=== PATIENT | male | born 1955 | race Two or more races ===

== ENCOUNTER → 2024-09-11 | Outpatient (CLI) | payer MEDICARE, BC, SELFPAY ==
[2024-09-11 12:17] LABS: Collection Type, Urine Clean Catch; Squamous Epithelial Cell,Urine 0 /hpf (0-5)
[2024-09-11 12:32] LABS: Basophils % (Auto) 1 % (0-2.5); Eosinophils # (Auto) 0.2 Thou/mm3 (0.0-0.5); Eosinophils % (Auto) 3 % (0-10); Hematocrit 42.9 % (41.0-53.0); Hemoglobin 15.3 g/dL (13.5-16.0); Immature Granulocytes % (Auto) 1 % (0-0); Immature Granulocytes Auto 0.04 Thou/mm3 (0.00-0.00); Lymphocytes # (Auto) 2.5 Thou/mm3 (1.0-4.8); Lymphocytes % (Auto) 41 % (10-50); Mean Corpuscular HGB Conc 35.7 g/dl (31.0-37.0); Mean Corpuscular Hemoglobin 33.5 pg (25.0-35.0); Mean Corpuscular Volume 94 fL (80-100); Monocytes # (Auto) 0.8 Thou/mm3 (0.0-0.8); Monocytes % (Auto) 13 % (0-12); Neutrophils # (Auto) 2.5 Thou/mm3 (1.8-7.7); Neutrophils % (Auto) 42 % (37-80); Nucleated Red Blood Cell % 0 /100 WBC (0); Platelet Count 100 Thou/mm3 (140-440); RDW Standard Deviation 44.5 fL (35.1-43.9); Red Blood Count 4.57 Miln/mm3 (4.50-5.90)
[2024-09-11 12:34] LABS: Bilirubin,Urine Negative (Negative); Blood,Urine Negative (Negative); Clarity,Urine Clear (Clear/Hazy); Color,Urine Yellow (Lt Yel-Yel); Culture Indicated,Urine Not Indicated; Glucose, Urine Negative (Negative); Ketones,Urine Negative (Negative); Leukocyte Esterase,Urine Negative (Negative); Nitrite,Urine Negative (Negative); PH,Urine 5.5 (5.0-7.0); Protein,Urine Negative (Neg - Trace); RBC,Urine 5 /hpf (0-3); Specific Gravity,Urine 1.023 (1.001-1.035); WBC,Urine < 1 /hpf (0-5)
[2024-09-11 12:46] LABS: Prostate Specific Antigen 1.17 ng/mL (0-4.00)
[2024-09-11 12:48] LABS: Alanine Aminotransferase 54 U/L (10-49); Albumin/Globulin Ratio 1.5 (1.2-2.2); Alkaline Phosphatase 92 U/L (46-116); Anion Gap 6 (7-16); Aspartate Amino Transferase 51 U/L (0-34); BUN/Creatinine Ratio 17 Ratio (12-20); Bilirubin,Total 2.4 mg/dL (0.3-1.2); Blood Urea Nitrogen 15 mg/dL (9-23); Calcium 9.2 mg/dL (8.3-10.6); Calcium (Corrected) 9.2 mg/dL (8.5-10.1); Carbon Dioxide 25.3 mMol/L (20.0-31.0); Cardiac Risk Estimate 5.8 RATIO (4.0-6.7); Chloride 108 mMol/L (98-107); Cholesterol 180 mg/dL (132-200); Creatinine (Component) 0.9 mg/dL (0.6-1.3); Globulin 2.6 gm/dL (2.3-3.5); Glucose 104 mg/dL (74-106); HDL Cholesterol 31 mg/dL (40-60); LDL Cholesterol,Calculated 120 mg/dL (0-130); Osmolality,Calculated 278 (275-295); Potassium 4.3 mMol/L (3.4-5.1); Sodium 139 mMol/L (136-145); Total Protein 6.6 gm/dL (5.7-8.2); Triglycerides 143 mg/dL (30-150); eGFR > 60 See Note
[2024-09-11 12:50] LABS: Thyroid Stimulating Hormone 1.57 uIU/mL (0.55-4.78); Vitamin B12 950 pg/mL (211-911); Vitamin D 25 Hydroxy Total 27.1 ng/mL (7.3-40.2)
[2024-09-18 06:27] LABS: Testosterone, Free,Dialysis 41.1 pg/mL (35.0-155.0); Testosterone, Total, Dialysis 720 ng/dL (250-1100)
== END | disposition home or self-care (01) ==
PROVIDERS: PCP Physician Assistant; Referring Provider Physician Assistant; Visit Provider Physician Assistant
DX: I10 Essential (primary) hypertension (principal); E78.5 Hyperlipidemia, unspecified; E55.9 Vitamin D deficiency, unspecified; R53.83 Other fatigue
CPT/HCPCS: 36415; 80053; 80061; 81001; 82306; 82607; 84153; 84402; 84403; 84443; 85025

== ENCOUNTER 2025-01-28 06:35 | Day surgery (SDC) | payer MEDICARE, BC, SELFPAY ==
--- NOTE | 2025-01-25 08:37 | EKG_ITS ---
[facility] Test Date: 2025-01-25 Pat Name: CHESTER BUSTILLO Department: Room: - Gender: Male [employer] Technician: ROHIT : 1955 Requested By: Marilia Harvey Order Number: [id number] Reading MD: Marilia Harvey Measurements Intervals [place] Rate: 63 P: 1 MN: 157 QRS: 23 QRSD: 96 T: 81 QT: 395 QTc: 406 Interpretive Statements SINUS RHYTHM LOW QRS VOLTAGE IN PRECORDIAL LEADS [QRS DEFLECTION < 1.0 mV IN CHEST LEADS] ANTEROSEPTAL MYOCARDIAL INFARCTION , PROBABLY RECENT [40+ ms Q WAVE IN V1-V4] ACUTE [facility] Compared to ECG 01/28/2021 12:59:55 Low QRS voltage now present Myocardial infarct finding now present /[id number]/[id number]
[2025-01-25 11:30] LABS: Basophils % (Auto) 1 % (0-2.5); Eosinophils # (Auto) 0.2 Thou/mm3 (0.0-0.5); Eosinophils % (Auto) 3 % (0-10); Hematocrit 42.3 % (41.0-53.0); Immature Granulocytes % (Auto) 1 % (0-0); Immature Granulocytes Auto 0.07 Thou/mm3 (0.00-0.00); Lymphocytes # (Auto) 2.6 Thou/mm3 (1.0-4.8); Lymphocytes % (Auto) 41 % (10-50); Mean Corpuscular HGB Conc 35.5 g/dl (31.0-37.0); Mean Corpuscular Hemoglobin 33.9 pg (25.0-35.0); Mean Corpuscular Volume 96 fL (80-100); Monocytes % (Auto) 15 % (0-12); Neutrophils # (Auto) 2.5 Thou/mm3 (1.8-7.7); Neutrophils % (Auto) 39 % (37-80); Nucleated Red Blood Cell % 0 /100 WBC (0); Platelet Count 88 Thou/mm3 (140-440); Red Blood Count 4.42 Miln/mm3 (4.50-5.90); White Blood Count 6.5 Thou/mm3 (3.8-10.6)
[2025-01-25 11:40] LABS: INR 1.2 (0.9-1.3); Partial Thromboplastin Time 27.6 Seconds (22.0-36.0); Prothrombin Time 12.5 Seconds (9.0-12.2)
[2025-01-25 11:41] LABS: Anion Gap 7 (7-16); BUN/Creatinine Ratio 14 Ratio (12-20); Blood Urea Nitrogen 14 mg/dL (9-23); Calcium 8.6 mg/dL (8.3-10.6); Carbon Dioxide 23.9 mMol/L (20.0-31.0); Chloride 110 mMol/L (98-107); Glucose 118 mg/dL (74-106); Osmolality,Calculated 282 (275-295); Potassium 4.4 mMol/L (3.4-5.1); Sodium 141 mMol/L (136-145); eGFR > 60 See Note
[2025-01-28] VITALS (12 sets, daily range): BP systolic 113–148; BP diastolic 68–92; PULSE 58–70; RESP 16–22; TEMP 36.2–36.8; O2SAT 95–99; BMI 40.8
--- NOTE | 2025-01-28 10:10 | ESOP_ITS ---
RE: CHESTER BUSTILLO : 1955 DATE OF OPERATION: 01/28/2025 PROCEDURE PERFORMED: 1. Diagnostic left heart cardiac catheterization, selective coronary angiogram, left ventricular angiogram, CPT 26109. 2. Conscious sedation for 30-minute duration. 3. Ultrasound-guided access, right radial artery. DIAGNOSES: Angina pectoris, coronary artery disease, abnormal nuclear stress test. HISTORY AND INDICATIONS: The patient is a 69-year-old male with a history of hypertension, hypercholesterolemia, recurrent shortness of breath, and chest pain on minimal exertion, class III angina pectoris. Cardiac stress test and nuclear scan showed anterior wall ischemia and inferolateral ischemia. Coronary angiogram was recommended to assess the patient is a candidate for coronary intervention and revascularization. DESCRIPTION OF PROCEDURE: The patient was brought to the cardiac catheterization laboratory where he was given 2 mg Versed and 50 mcg of fentanyl for conscious sedation. Right radial approach was taken. Right radial artery was cannulated with a micropuncture technique. A 6- [place] Glidesheath was introduced. A #5 [place] TIG-4.5 diagnostic catheter was used to perform selective right and left coronary angiogram. Left heart catheterization and LV angiogram performed by TIG-4.5 diagnostic catheter. Subsequently, aortic arch angiogram showed the subclavian artery appears to be patent. The patient tolerated the procedure with no complications. Radial cocktail was given initially, 3000 units of heparin in the radial cocktail along with nitroglycerin. The sheath was removed. Hemostasis was secured. Cardiac catheterization showed following findings: HEMODYNAMICS: Left ventricular pressure 115/4 mmHg, EDP 18, aortic pressure 115/60 mmHg. No gradient across the aortic valve. Left ventricular angiogram showed evidence of well-preserved normalized left ventricular function. Ejection fraction of 55% to 60%. Coronary angiogram showed following: Right coronary artery was large and dominant showed some ectasia in the proximal mid segment. Distal right coronary artery showed evidence of a 75% to 80% stenosis at the bifurcation. Posterolateral branch showed evidence of 80% stenosis to the origin. Posterior descending artery showed a 95% stenosis close to its origin. This is a bifurcation lesion. Both branches are large, 3 mm vessels. The PDA is giving collaterals to the LAD. Left coronary system: Left main coronary artery showed disease in the distal left main with 40% stenosis at the bifurcation. Left anterior descending artery totally occluded along 5 to 6 cm length of total occlusion and reconstitutes that are excellent in BOSE cranial position, AP cranial position, you can see mid and distal left anterior descending artery 2.5 to 3 mm vessel and a diagonal branch fairly good size, 2.5 mm diagonal is also seen via left to left collaterals. Circumflex artery itself showed no significant stenosis, gives off one large obtuse marginal branch and a posterolateral branch. SUMMARY OF FINDINGS AND SUGGESTIONS: 1. Severe double-vessel coronary artery disease with evidence of 100% occlusion, chronic total occlusion of the proximal left anterior descending artery, close to its origin before the septal branch, excellent collaterals visualizing entire mid and distal LAD including a large diagonal branch, appears to be patent. 2. Right coronary artery, distal right RCA bifurcation stenosis with 80% stenosis with 95% lesion involving the posterior descending artery, large vessels. 3. Preserved left ventricular function, ejection fraction 55%. RECOMMENDATIONS: The patient is recommended to continue medical management. The patient is quite symptomatic since proximal LAD is occluded and severely symptomatic candidate in class III angina. Recommended to have double-vessel bypass graft surgery, ANGUIANO to LAD, and vein graft to PDA and PL branches. Continue aspirin until the surgery is performed. DT: 08:31:02 TT: 10:03:00 Ref: [id number] - TID: [id number]
--- NOTE | 2025-01-28 11:47 | PC.NURSE ---
0829 patient is awake, alert, breathing unlabored, s/p LHC by Dr. Robison, TR band present to right wrist, no bleeding or hematoma noted, report received from Kay MONTANEZ, patient to recover for 3hours. Pt to continue aspirin. 1030 Tr band removed, no bleeding or hematoma noted 1135 patient is awake, alert, breathing unlabored, dressing to right wrist dry with no bleeding or hematoma, patient able to tolerate food tray with no nausea or vomiting, able to ambulate to bathroom and void x2, meets discharge criteria, discharge instrucitons given to patient and , patient discharged home in wheelchair with all belongings.
== END 2025-01-28 11:35 | disposition home or self-care (01) ==
PROVIDERS: PCP Family Medicine; Referring Provider Internal Medicine Cardiovascular Disease; Visit Provider Internal Medicine Cardiovascular Disease
PROC: (CPT 93458; principal; 2025-01-28 07:30)
DX: I25.118 Atherosclerotic heart disease of native coronary artery with other forms of angina pectoris (principal); I25.82 Chronic total occlusion of coronary artery; I10 Essential (primary) hypertension; E78.00 Pure hypercholesterolemia, unspecified; E66.01 Morbid (severe) obesity due to excess calories; G47.33 Obstructive sleep apnea (adult) (pediatric); E11.9 Type 2 diabetes mellitus without complications; F17.210 Nicotine dependence, cigarettes, uncomplicated; Z79.899 Other long term (current) drug therapy; Z68.41 Body mass index [BMI] 40.0-44.9, adult
CPT/HCPCS: 93458; 36415; 80048; 85025; 85610; 85730; 93005; 99152; 99153; A4649; C1769; C1887; C1894; J0153; J0171; J0282; J0461; J1643; J2250; J2310; J2371; J3010; J3490

== ENCOUNTER → 2025-06-03 | Outpatient (CLI) | payer MEDICARE, BC, SELFPAY ==
[2025-06-03 10:11] LABS: Albumin, Serum 3.7 gm/dL (3.4-4.8); Anion Gap 11 (7-16); BUN/Creatinine Ratio 13 Ratio (12-20); Blood Urea Nitrogen 13 mg/dL (9-23); Calcium 9.6 mg/dL (8.3-10.6); Calcium (Corrected) 9.8 mg/dL (8.5-10.1); Carbon Dioxide 32.2 mMol/L (20.0-31.0); Chloride 93 mMol/L (98-107); Creatinine (Component) 1.0 mg/dL (0.6-1.3); Glucose 110 mg/dL (74-106); Osmolality,Calculated 273 (275-295); Phosphorous 3.5 mg/dL (2.4-5.1); Potassium 2.9 mMol/L (3.4-5.1); Sodium 136 mMol/L (136-145); eGFR > 60 See Note
[2025-06-03 10:49] LABS: Basophils # (Auto) 0.1 Thou/mm3 (0.0-0.2); Basophils % (Auto) 1 % (0-2.5); Eosinophils # (Auto) 0.8 Thou/mm3 (0.0-0.5); Eosinophils % (Auto) 10 % (0-10); Hematocrit 37.8 % (41.0-53.0); Hemoglobin 13.0 g/dL (13.5-16.0); Immature Granulocytes Auto 0.05 Thou/mm3 (0.00-0.00); Lymphocytes # (Auto) 2.4 Thou/mm3 (1.0-4.8); Lymphocytes % (Auto) 28 % (10-50); Mean Corpuscular HGB Conc 34.4 g/dl (31.0-37.0); Mean Corpuscular Hemoglobin 32.6 pg (25.0-35.0); Mean Corpuscular Volume 95 fL (80-100); Monocytes # (Auto) 1.3 Thou/mm3 (0.0-0.8); Monocytes % (Auto) 15 % (0-12); Neutrophils # (Auto) 4.0 Thou/mm3 (1.8-7.7); Neutrophils % (Auto) 46 % (37-80); Nucleated Red Blood Cell # 0.00 Thou/mm3 (0.00-0.00); Nucleated Red Blood Cell % 0 /100 WBC (0); Platelet Count 227 Thou/mm3 (140-440); RDW Standard Deviation 44.5 fL (35.1-43.9); Red Blood Count 3.99 Miln/mm3 (4.50-5.90); White Blood Count 8.6 Thou/mm3 (3.8-10.6)
== END | disposition home or self-care (01) ==
PROVIDERS: PCP Family Medicine; Referring Provider Internal Medicine Cardiovascular Disease; Visit Provider Internal Medicine Cardiovascular Disease
DX: I25.10 Atherosclerotic heart disease of native coronary artery without angina pectoris (principal)
CPT/HCPCS: 36415; 80069; 85025

== ENCOUNTER → 2025-06-20 | Outpatient (CLI) | payer MEDICARE, BC, SELFPAY ==
[2025-06-20 08:38] LABS: Basophils # (Auto) 0.0 Thou/mm3 (0.0-0.2); Basophils % (Auto) 1 % (0-2.5); Eosinophils # (Auto) 0.4 Thou/mm3 (0.0-0.5); Eosinophils % (Auto) 8 % (0-10); Hematocrit 39.2 % (41.0-53.0); Hemoglobin 13.6 g/dL (13.5-16.0); Immature Granulocytes Auto 0.03 Thou/mm3 (0.00-0.00); Lymphocytes # (Auto) 2.0 Thou/mm3 (1.0-4.8); Lymphocytes % (Auto) 36 % (10-50); Mean Corpuscular HGB Conc 34.7 g/dl (31.0-37.0); Mean Corpuscular Hemoglobin 32.6 pg (25.0-35.0); Mean Corpuscular Volume 94 fL (80-100); Monocytes # (Auto) 0.8 Thou/mm3 (0.0-0.8); Monocytes % (Auto) 15 % (0-12); Neutrophils # (Auto) 2.3 Thou/mm3 (1.8-7.7); Neutrophils % (Auto) 41 % (37-80); Nucleated Red Blood Cell # 0.00 Thou/mm3 (0.00-0.00); Nucleated Red Blood Cell % 0 /100 WBC (0); Platelet Count 163 Thou/mm3 (140-440); RDW Standard Deviation 44.4 fL (35.1-43.9); Red Blood Count 4.17 Miln/mm3 (4.50-5.90); White Blood Count 5.6 Thou/mm3 (3.8-10.6)
[2025-06-20 08:59] LABS: Alanine Aminotransferase 32 U/L (10-49); Albumin, Serum 3.6 gm/dL (3.4-4.8); Albumin/Globulin Ratio 1.2 (1.2-2.2); Alkaline Phosphatase 111 U/L (46-116); Anion Gap 10 (7-16); Aspartate Amino Transferase 56 U/L (0-34); BUN/Creatinine Ratio 10 Ratio (12-20); Bilirubin,Total 2.1 mg/dL (0.3-1.2); Blood Urea Nitrogen 9 mg/dL (9-23); Calcium 9.3 mg/dL (8.3-10.6); Calcium (Corrected) 9.6 mg/dL (8.5-10.1); Carbon Dioxide 29.9 mMol/L (20.0-31.0); Cardiac Risk Estimate 3.0 RATIO (4.0-6.7); Chloride 99 mMol/L (98-107); Cholesterol 95 mg/dL (132-200); Creatinine (Component) 0.9 mg/dL (0.6-1.3); Globulin 3.0 gm/dL (2.3-3.5); Glucose 116 mg/dL (74-106); HDL Cholesterol 32 mg/dL (40-60); LDL Cholesterol,Calculated 46 mg/dL (0-130); Osmolality,Calculated 277 (275-295); Phosphorous 3.4 mg/dL (2.4-5.1); Potassium 3.0 mMol/L (3.4-5.1); Sodium 139 mMol/L (136-145); Total Protein 6.6 gm/dL (5.7-8.2); Triglycerides 83 mg/dL (30-150); eGFR > 60 See Note
[2025-06-20 09:16] LABS: Ferritin 195 ng/mL (10.5-307.3); Iron 81 mcg/dL (65-175)
[2025-06-20 09:54] LABS: Glucose Estimated Average 103 mg/dL (80-131); Hemoglobin A1C 5.2 % Hgb (4.8-6.0)
== END | disposition home or self-care (01) ==
LOC: COPL 07:10
PROVIDERS: PCP Family Medicine; Referring Provider Internal Medicine Cardiovascular Disease; Visit Provider Physician Assistant
DX: I25.10 Atherosclerotic heart disease of native coronary artery without angina pectoris (principal); I10 Essential (primary) hypertension; D69.6 Thrombocytopenia, unspecified; E83.10 Disorder of iron metabolism, unspecified; E78.5 Hyperlipidemia, unspecified; R94.5 Abnormal results of liver function studies; R73.01 Impaired fasting glucose
CPT/HCPCS: 36415; 80053; 80061; 82728; 83036; 83540; 84100; 85025

== ENCOUNTER → 2025-06-24 | Outpatient (CLI) | payer MEDICARE, BC, SELFPAY ==
[2025-06-24 09:18] LABS: Glucose Estimated Average 105 mg/dL (80-131); Hemoglobin A1C 5.3 % Hgb (4.8-6.0)
== END | disposition home or self-care (01) ==
PROVIDERS: PCP Physician Assistant; Referring Provider Physician Assistant; Visit Provider Physician Assistant
DX: I10 Essential (primary) hypertension (principal); D69.6 Thrombocytopenia, unspecified; E83.10 Disorder of iron metabolism, unspecified; E78.5 Hyperlipidemia, unspecified; R94.5 Abnormal results of liver function studies; R73.01 Impaired fasting glucose
CPT/HCPCS: 36415; 83036

== ENCOUNTER → 2025-07-04 | Outpatient (CLI) | payer MEDICARE, BC, SELFPAY ==
[2025-07-04 09:38] LABS: Basophils # (Auto) 0.1 Thou/mm3 (0.0-0.2); Basophils % (Auto) 1 % (0-2.5); Eosinophils # (Auto) 0.3 Thou/mm3 (0.0-0.5); Eosinophils % (Auto) 5 % (0-10); Hematocrit 40.4 % (41.0-53.0); Hemoglobin 14.0 g/dL (13.5-16.0); Immature Granulocytes Auto 0.03 Thou/mm3 (0.00-0.00); Lymphocytes # (Auto) 2.0 Thou/mm3 (1.0-4.8); Lymphocytes % (Auto) 32 % (10-50); Mean Corpuscular HGB Conc 34.7 g/dl (31.0-37.0); Mean Corpuscular Hemoglobin 31.9 pg (25.0-35.0); Mean Corpuscular Volume 92 fL (80-100); Monocytes # (Auto) 0.9 Thou/mm3 (0.0-0.8); Monocytes % (Auto) 14 % (0-12); Neutrophils # (Auto) 3.1 Thou/mm3 (1.8-7.7); Neutrophils % (Auto) 49 % (37-80); Nucleated Red Blood Cell # 0.00 Thou/mm3 (0.00-0.00); Nucleated Red Blood Cell % 0 /100 WBC (0); Platelet Count 142 Thou/mm3 (140-440); RDW Standard Deviation 44.4 fL (35.1-43.9); Red Blood Count 4.39 Miln/mm3 (4.50-5.90); White Blood Count 6.4 Thou/mm3 (3.8-10.6)
[2025-07-04 10:00] LABS: Albumin, Serum 3.8 gm/dL (3.4-4.8); Anion Gap 10 (7-16); BUN/Creatinine Ratio 11 Ratio (12-20); Blood Urea Nitrogen 11 mg/dL (9-23); Calcium 9.4 mg/dL (8.3-10.6); Calcium (Corrected) 9.6 mg/dL (8.5-10.1); Carbon Dioxide 27.5 mMol/L (20.0-31.0); Chloride 98 mMol/L (98-107); Creatinine (Component) 1.0 mg/dL (0.6-1.3); Glucose 175 mg/dL (74-106); Osmolality,Calculated 273 (275-295); Phosphorous 2.8 mg/dL (2.4-5.1); Potassium 3.3 mMol/L (3.4-5.1); Sodium 135 mMol/L (136-145); eGFR > 60 See Note
== END | disposition home or self-care (01) ==
PROVIDERS: PCP Family Medicine; Referring Provider Internal Medicine Cardiovascular Disease; Visit Provider Internal Medicine Cardiovascular Disease
DX: Z95.1 Presence of aortocoronary bypass graft (principal)
CPT/HCPCS: 36415; 80069; 85025

== ENCOUNTER → 2025-07-25 | Outpatient (CLI) | payer MEDICARE, BC, SELFPAY ==
[2025-07-25 13:16] LABS: Albumin, Serum 4.0 gm/dL (3.4-4.8); Anion Gap 11 (7-16); BUN/Creatinine Ratio 9 Ratio (12-20); Blood Urea Nitrogen 10 mg/dL (9-23); Calcium 9.2 mg/dL (8.3-10.6); Calcium (Corrected) 9.2 mg/dL (8.5-10.1); Carbon Dioxide 25.2 mMol/L (20.0-31.0); Chloride 101 mMol/L (98-107); Creatinine (Component) 1.1 mg/dL (0.6-1.3); Glucose 165 mg/dL (74-106); Osmolality,Calculated 276 (275-295); Phosphorous 3.4 mg/dL (2.4-5.1); Potassium 3.2 mMol/L (3.4-5.1); Sodium 137 mMol/L (136-145); eGFR > 60 See Note
== END | disposition home or self-care (01) ==
LOC: COPL 12:02
PROVIDERS: PCP Family Medicine; Referring Provider Internal Medicine Cardiovascular Disease; Visit Provider Internal Medicine Cardiovascular Disease
DX: Z95.1 Presence of aortocoronary bypass graft (principal)
CPT/HCPCS: 36415; 80069

== ENCOUNTER → 2025-08-22 | Outpatient (CLI) | payer MEDICARE, BC, SELFPAY ==
[2025-08-22 08:37] LABS: Basophils # (Auto) 0.1 Thou/mm3 (0.0-0.2); Basophils % (Auto) 1 % (0-2.5); Eosinophils # (Auto) 0.2 Thou/mm3 (0.0-0.5); Eosinophils % (Auto) 3 % (0-10); Hematocrit 43.4 % (41.0-53.0); Hemoglobin 14.8 g/dL (13.5-16.0); Immature Granulocytes Auto 0.04 Thou/mm3 (0.00-0.00); Lymphocytes # (Auto) 2.8 Thou/mm3 (1.0-4.8); Lymphocytes % (Auto) 41 % (10-50); Mean Corpuscular HGB Conc 34.1 g/dl (31.0-37.0); Mean Corpuscular Hemoglobin 30.6 pg (25.0-35.0); Mean Corpuscular Volume 90 fL (80-100); Monocytes # (Auto) 1.0 Thou/mm3 (0.0-0.8); Monocytes % (Auto) 14 % (0-12); Neutrophils # (Auto) 2.8 Thou/mm3 (1.8-7.7); Neutrophils % (Auto) 41 % (37-80); Nucleated Red Blood Cell # 0.00 Thou/mm3 (0.00-0.00); Nucleated Red Blood Cell % 0 /100 WBC (0); Platelet Count 118 Thou/mm3 (140-440); RDW Standard Deviation 43.7 fL (35.1-43.9); Red Blood Count 4.83 Miln/mm3 (4.50-5.90); White Blood Count 7.0 Thou/mm3 (3.8-10.6)
[2025-08-22 08:58] LABS: Albumin, Serum 4.0 gm/dL (3.4-4.8); Anion Gap 11 (7-16); BUN/Creatinine Ratio 12 Ratio (12-20); Blood Urea Nitrogen 12 mg/dL (9-23); Calcium 9.8 mg/dL (8.3-10.6); Calcium (Corrected) 9.8 mg/dL (8.5-10.1); Carbon Dioxide 30.3 mMol/L (20.0-31.0); Chloride 99 mMol/L (98-107); Creatinine (Component) 1.0 mg/dL (0.6-1.3); Glucose 130 mg/dL (74-106); Osmolality,Calculated 281 (275-295); Phosphorous 3.7 mg/dL (2.4-5.1); Potassium 2.8 mMol/L (3.4-5.1); Sodium 140 mMol/L (136-145); eGFR > 60 See Note
== END | disposition home or self-care (01) ==
LOC: COPL 07:26
PROVIDERS: PCP Family Medicine; Referring Provider Internal Medicine Cardiovascular Disease; Visit Provider Internal Medicine Cardiovascular Disease
DX: I25.10 Atherosclerotic heart disease of native coronary artery without angina pectoris (principal); Z95.1 Presence of aortocoronary bypass graft
CPT/HCPCS: 36415; 80069; 85025

== ENCOUNTER → 2025-09-05 | Outpatient (CLI) | payer MEDICARE, BC, SELFPAY ==
[2025-09-05 08:51] LABS: Albumin, Serum 3.8 gm/dL (3.4-4.8); Anion Gap 13 (7-16); BUN/Creatinine Ratio 13 Ratio (12-20); Blood Urea Nitrogen 14 mg/dL (9-23); Calcium 9.2 mg/dL (8.3-10.6); Calcium (Corrected) 9.4 mg/dL (8.5-10.1); Carbon Dioxide 26.5 mMol/L (20.0-31.0); Chloride 102 mMol/L (98-107); Creatinine (Component) 1.1 mg/dL (0.6-1.3); Glucose 148 mg/dL (74-106); Osmolality,Calculated 284 (275-295); Phosphorous 3.8 mg/dL (2.4-5.1); Potassium 3.4 mMol/L (3.4-5.1); Sodium 141 mMol/L (136-145); eGFR > 60 See Note
== END | disposition home or self-care (01) ==
LOC: COPL 07:24
PROVIDERS: PCP Family Medicine; Referring Provider Internal Medicine Cardiovascular Disease; Visit Provider Internal Medicine Cardiovascular Disease
DX: G47.33 Obstructive sleep apnea (adult) (pediatric) (principal)
CPT/HCPCS: 36415; 80069